=== PATIENT | female | born 1970 | race Caucasian/White ===

== ENCOUNTER 2024-11-15 07:59 | Day surgery (SDC) | payer OTHER, SELFPAY ==
--- NOTE | 2024-10-30 08:49 | PAT.ANESEVAL ---
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 When Was Last Pacemaker Check QUESTION #4 FULL TEXT: You/Your Family Experience fever (hyperthermia) with Anesthesia Last Oral Intake Last Oral intake: Last Oral Intake NPO since Meds taken in AM with sips of water? Meds patient instructed to take am of surgery PONV PONV - marketing performance analyst: PONV - marketing performance analyst Female Yes 10/30/24 08:26 HX of Motion Sickness No 10/30/24 08:26 HX of N/V After Surgery No 10/30/24 08:26 Non-Smoker Yes 10/30/24 08:26 Duration of Surgery greater No 10/30/24 08:26 than 60 minutes Number of Risk Factors 2 10/30/24 08:26 PONV Score Moderate Risk 10/30/24 08:26 Respiratory Assessment Respiratory Assessment - marketing performance analyst: Respiratory Tract Infection Hx - marketing performance analyst Hx Respiratory Tract Infection No 10/30/24 08:26 STOP Sleep Apnea STOP Sleep Apnea - marketing performance analyst: STOP Sleep Apnea - marketing performance analyst Hx Hypertension Yes 10/30/24 08:26 Hx Sleep Apnea No 10/30/24 08:26 CPAP BIPAP Do you snore loudly (louder Yes 10/30/24 08:26 than talking or can be heard Do you often feel tired/ No 10/30/24 08:26 fatigued/ sleepy during daytime? Has anyone observed you stop No 10/30/24 08:26 breathing during sleep? STOP Results Positive 10/30/24 08:26 QUESTION #5 FULL TEXT : Do you snore loudly (louder than talking or can be heard through closed doors)? 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 Specify any problems Hx of Preganancy in last 3 No 10/30/24 08:26 Months Nurse Filling Out Transfusion [email or web address] 10/30/24 08:26 & Questions: Date: 10/30/24 10/30/24 08:26 Time: 10/30/24 08:26 Patient unable to answer at this time (ie. confused, unrespo /Reproduction History /Reproductive History - marketing performance analyst: /Reproductive Hx- marketing performance analyst Hx Now No 10/30/24 08:26 Gestational Age (in weeks): EDC: Hx Hx Para Hx Section SAB No 10/30/24 08:26 PFSH Medical History (Updated 10/30/24 @ 08:35 by Shaggy Alexander) Carpal tunnel syndrome on both sides Wears glasses Prediabetes Arthritis Heartburn Non-smoker History of echocardiogram Hypertension Post-menopausal Home Medications ?Medication ?Instructions ?Recorded ?Last Taken ?Type atorvastatin 10 mg tablet 10 mg PO DAILY 10/30/24 Unknown History lisinopril 40 mg tablet 40 mg PO DAILY 10/30/24 Unknown History metoprolol succinate 25 mg 25 mg PO DAILY 10/30/24 Unknown History tablet,extended release 24 hr spironolactone 25 mg tablet 25 mg PO DAILY 10/30/24 Unknown History Allergy/AdvReac Type Severity Reaction Status Date / Time ciprofloxacin (From Cipro) AdvReac Rash Verified 10/30/24 08:24 hydrochlorothiazide (hctz) AdvReac pancreatiti Verified 10/30/24 08:24 s Surgical History (Updated 10/30/24 @ 08:35 by Shaggy Alexander) H/O: Tubal ligation status Social History Smoking Status: Never smoker Audit: Pertinent Findings Pertinent Findings Echo (EF%) pertinent findings: August 04, 2023. EF is 69%. No aortic stenosis. Recommendation Anesthesia Recommendation Anesthesia recommendation: OPTIMIZED for anesthesia
[2024-11-05 17:12] LABS: Hematocrit 42.9 % (37-47); Hemoglobin 14.3 g/dL (12.0-15.0); Immature Granulocytes Count 0.030 X10^3/uL (0.0-0.0); Mean Corp Hgb Conc 33.3 g/dL (32-36); Mean Corpuscular Volume 87.2 fL (81-99); Mean Platelet Vol. 9.5 fl (6.2-12.0); NRBC Flagged by Analyzer 0 % (0-5); Platelet Count 376 K/mm3 (150-450); RBC Distribution Width CV 12.4 % (11.6-14.6); RBC Distribution Width SD 39.8 fl (35.1-43.9); Red Blood Count 4.92 M/mm3 (4.2-5.4); White Blood Count 11.6 K/mm3 (4.4-11.0)
[2024-11-05 17:48] LABS: AST(SGOT) 22 U/L (<=31); Alanine Aminotransfer ALT/SGPT 23 U/L (<=34); Albumin, Serum 4.7 g/dL (3.5-5.0); Alkaline Phosphatase 88 U/L (35-104); Anion Gap 11 (5-15); BUN 10 mg/dL (4-19); BUN/Creat Ratio 9.9 RATIO (10-20); Calcium,Total 9.6 mg/dL (7.6-11.0); Carbon Dioxide 25.4 mmol/L (21.0-32.0); Chloride 101 mmol/L (98-108); Globulin 2.9 g/dL (2.2-4.2); Glucose 86 mg/dL (70-99); Potassium 4.7 mmol/L (3.3-5.1)
[2024-11-15] VITALS (9 sets, daily range): BP systolic 104–116; BP diastolic 58–72; PULSE 57–77; RESP 12–16; TEMP 36–36.4; O2SAT 93–100; BMI 37.7
[2024-11-15] MEDS: Lactated Ringers 1,000 ML 15 ML IV (08:36)
--- NOTE | 2024-11-15 09:07 | PRE.ANES_ITS ---
ASA Classification* ASA Classification ASA Classification: 2 Assessment & Plan Anesthesia* Anesthesia Assessment Anesthesia Assessment: Discussed sedation and/or anesthesia options, risks, benefits, and alternatives with patient/parents/legal guardian/POA. Questions invited. The patient/parents/legal guardian/POA seems to understand and agrees to proceed with anesthesia plan. Reviewed the physical assessment, medical history, allergy history and patient home medications list prior to surgery/procedure/anesthetic and documented any changes. Performed airway and anesthesia risk assessments. Anesthesia Type Anesthesia Type: MAC History Source History Obtained from:: Patient and Chart Anesthesia Focused Assessment* Temperature: 97.5 F Pulse Rate: 57 Blood Pressure: 114/58 Respiratory Rate: 12 Pulse Ox: 100 Oxygen Delivery Method: Room Air Airway Assessment Mouth opens: >3 cm Mallampati Score: II Teeth Condition: Intact Neck Range of motion (ROM): Full ROM Labs Anesthesia Preop lab: CBC WBC, (4.4-11.0) 11.6 K/mm3 H 11/05/24, 16: RBC, (4.2-5.4) 4.92 M/mm3 11/05/24, 16:33 Hgb, (12.0-15.0) 14.3 g/dL 11/05/24, 16:33 Hct, (37-47) 42.9 % 11/05/24, 16:33 Plt Count, (150-450) 376 K/mm3 11/05/24, 16:33 CHEMISTRY Potassium, (3.3-5.1) 4.7 mmol/L 11/05/24, 16:33 Sodium, (133-145) 138 mmol/L 11/05/24, 16:33 BUN, (4-19) 10 mg/dL 11/05/24, 16:33 Creatinine, (0.70-1.20) 1.00 mg/dL 11/05/24, : Glucose, (70-99) 86 mg/dL 11/05/24, 16:33 COAG Pre-Assessment Diagnosis/Proposed Procedure Planned Operative Procedure(s): HYSTEROSCOPY DILATION AND CURRETAGE Anesthesia History 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 When Was Last Pacemaker Check QUESTION #4 FULL TEXT: You/Your Family Experience fever (hyperthermia) with Anesthesia Last Oral Intake Last Oral intake: Last Oral Intake NPO since 00:00 11/15/24 08:26 Meds taken in AM with sips of water? Meds patient instructed to take am of surgery PONV PONV - battery technician: PONV - battery technician Female Yes 10/30/24 08:26 HX of Motion Sickness No 10/30/24 08:26 HX of N/V After Surgery No 10/30/24 08:26 Non-Smoker Yes 10/30/24 08:26 Duration of Surgery greater No 10/30/24 08:26 than 60 minutes Number of Risk Factors 2 10/30/24 08:26 PONV Score Moderate Risk 10/30/24 08:26 Height & Weight Height & Weight: Anesthesia: Height & Weight Height 5 ft 4 in 11/15/24 08:26 Weight: 99.6 kg 11/15/24 08:26 Body Mass Index (BMI) 37.7 11/15/24 08:26 Respiratory Assessment Respiratory Assessment - battery technician: Respiratory Tract Infection Hx - battery technician Hx Respiratory Tract Infection No 10/30/24 08:26 STOP Sleep Apnea STOP Sleep Apnea - battery technician: STOP Sleep Apnea - battery technician Hx Hypertension Yes 10/30/24 08:26 Hx Sleep Apnea No 10/30/24 08:26 CPAP BIPAP Do you snore loudly (louder Yes 10/30/24 08:26 than talking or can be heard Do you often feel tired/ No 10/30/24 08:26 fatigued/ sleepy during daytime? Has anyone observed you stop No 10/30/24 08:26 breathing during sleep? STOP Results Positive 10/30/24 08:26 QUESTION #5 FULL TEXT : Do you snore loudly (louder than talking or can be heard through closed doors)? 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 Specify any problems Hx of Preganancy in last 3 No 10/30/24 08:26 Months Nurse Filling Out Transfusion [email or web address] 10/30/24 08:26 & Questions: Date: 10/30/24 10/30/24 08:26 Time: 08:29 10/30/24 08:26 Patient unable to answer at this time (ie. confused, unrespo /Reproduction History /Reproductive History - battery technician: /Reproductive Hx- battery technician Hx Now No 10/30/24 08:26 Gestational Age (in weeks): EDC: Hx Hx Para Hx Section SAB No 10/30/24 08:26 Active Medications Active Medications: Current Medications Generic Name Dose Route Start Last Admin Trade Name Freq PRN Reason Stop Dose Admin Lactated Ringer's 1,000 mls @ 15 mls/hr 11/15/24 08:15 11/15/24 08:36 IV 15 mls/hr .Q48H ENEIDA Administration PFSH Medical History Carpal tunnel syndrome on both sides Wears glasses Prediabetes Arthritis Heartburn Non-smoker History of echocardiogram Hypertension Post-menopausal Home Medications ?Medication ?Instructions ?Recorded ?Last Taken ?Type atorvastatin 10 mg tablet 10 mg PO DAILY 10/30/2410/23 History lisinopril 40 mg tablet 40 mg PO DAILY 10/30/2410/23 History metoprolol succinate 25 mg 25 mg PO DAILY 10/30/24 History tablet,extended release 24 hr spironolactone 25 mg tablet 25 mg PO DAILY 10/30/24 History Allergy/AdvReac Type Severity Reaction Status Date / Time ciprofloxacin (From Cipro) AdvReac Rash Verified 11/15/24 08:24 hydrochlorothiazide (hctz) AdvReac pancreatiti Verified 11/15/24 08:24 s Surgical History H/O: Tubal ligation status Social History Smoking Status: Never smoker Review of Systems (Anesthesia) ROS Narrative System reviewed and no additional complaints, except as documented.
[2024-11-15] MEDS: Midazolam 2 MG/2 ML Syringe IV (09:14)
[2024-11-15] MEDS: fentaNYL 100 MCG/2 ML Ampul 50 MCG IV (09:17)
--- NOTE | 2024-11-15 09:30 | EMB_PTH ---
PATIENT: ERICKA CHAVARRIA [place] [facility] [id number] AGE/SX: 54/F ROOM: RE11/15/[address]: Dr. Anitha Long DO : 1970 BED: DIS: 11/15/2024 SPEC #: [id number] RECD: 11/15/24 10:42 STATUS: FRANCA REGinger #: [id number] OPAL: 11/15/24 09:[address]: Anitha Long DEPT: SURGICAL PATHOLOGY RECD BY: Colby Jain ENTERED: 11/15/24 14:36 SP TYPE: ENDOM BX/C OT DR: Dr. Kristina Brown MD Tissues: A - Endometrium, NOS Procedures: Surgery Specimen Level IV HEADER OPERATION: Hysteroscopy, D&C PRE-OP DIAGNOSIS: Postmenopausal bleeding, thickened endometrium TISSUE SUBMITTED: A- Endometrial curettings MICROSCOPIC DIAGNOSIS A. Endometrium, curettage: * Scant endocervical epithelium and lower uterine segment. * No definitive endometrium seen - see note. * Note: Limited tissue is present for evaluation. Clinical correlation is necessary to assess the adequacy of this sampling. MICROSCOPIC DESCRIPTION Slides are reviewed. GROSS DESCRIPTION A. Received in formalin labeled with the patient's name and date of . Designated as endometrial curettings is a 2.5 x 1.3 x 0.1 cm aggregate of mucoid material and a pink-howell red flecks of tissue. Entirely submitted in 1 cassette. LA 11/15/2024 CPT:84680
[2024-11-15] MEDS: Lidocaine 1% /Epi 1:100 (20ml) 20 ML Vial (09:36)
--- NOTE | 2024-11-15 09:47 | PCM.OPRPT ---
Operative Report (Standard) Operative Information Date of Procedure: 11/15/24 Pre-Operative Diagnosis: Thickened endometrium Post-Operative Diagnosis: Thickened endometrium Surgery/Procedure Performed: Hysteroscopy, D&C carbon brusher assembler: No Type of Anesthesia: MAC RN Documented Start/Stop Times: Operation Date: 11/15/24 09:30 Case Time Into Pre-Op 11/15/24 08:05 Anesthesia Start 11/15/24 09:13 Into Room 11/15/24 09:13 Procedure Start 11/15/24 09:34 Procedure End 11/15/24 09:46 Procedure Start Time: :34 Procedure Stop Time: :46 Select all DRAINS/GRAFTS/IMPLANTS that apply: None Special Medications: None Estimated Blood Loss: < 50 mL Fluids Replaced: See anesthesia record Specimen collected: Yes Description of specimen(s) removed: Endometrial curettings Description of surgery: The patient was taken to the operating room where MAC anesthesia was induced and found to be adequate. She was prepped and draped in the dorsal lithotomy position using yellowfin stirrups. A weighted speculum was placed in the vagina to expose the cervix. The anterior lip of the cervix was grasped with single-tooth tenaculum. The cervix was stenotic at the internal cervical os. The cervix was serially dilated. The uterus sounded to 7.5 cm in length. The hysteroscope was inserted into the uterine cavity, and uterine cavity was distended with normal saline as distention media. Bilateral tubal ostia were unable to be visualized. The endometrium was thin appearing. Limited visibility of the entire uterine cavity. The hysteroscope was then removed. The uterus again sounded to 7.5 cm in length. A sharp curettage was performed for scant tissue. The endometrial curettings were sent to pathology for review. Bleeding was scant. All instruments were removed from the vagina. A vaginal sweep was performed. Instrument and sponge counts were correct. The patient was taken to the recovery in stable condition. Surgical Findings: Stenotic cervix Uterus sounded to 7.5 cm in length Endometrium thin appearing however limited visibility and bilateral tubal ostia not visualized likely due to past ablation Complications Complications: No Admit VTE Documentation VTE Present on Admission: No VTE Mechan Device Prophylaxis: SCD's
--- NOTE | 2024-11-15 09:55 | PCM.DC ---
Discharge Instructions DC O2, CPAP, BIPAP needs Home O2 Discharge instructions: No Dressing / Incision Discharge Activity: May Drive (once you are more than 24 hours out from surgery) and May Shower (once you are more than 24 hours out from surgery) May resume sexual activity in: 1 week (nothing in the vagina for 1 week) Weight Bearing Status: Weight bearing as tolerated Lifting Restrictions: none Dressing / Incision Call your doctor if you observe: Fever of 101 or Higher, Inability to urinate, Inability to have a bowel movement, Using more than 1 pad per hour, Shortness of breath, Dizziness, Fainting spells, Swelling in the ankles, Chest pain, Increased palpitations (irregular heartbeat), Calf discomfort and Uncontrolled pain Cleanse incision/area with: Soap & Water Follow Up Care Please Follow Up With: Anitha Long DO When: 1 week for follow up Test Results: Test results from this visit will be discussed in further detail at your follow-up appointment, if applicable. Discharge Plan Admission Primary Reason for Your Visit: Surgery Attending Provider: Anitha Long Primary Care Provider: Kristina Brown Instructions Patient Instructions: Dilation and Curettage Print Language: Palestinian Discharge Orders/Prescriptions Prescriptions: Continued atorvastatin 10 mg tablet 10 mg PO DAILY metoprolol succinate 25 mg tablet extended release 24 hr 25 mg PO DAILY lisinopril 40 mg tablet 40 mg PO DAILY spironolactone 25 mg tablet 25 mg PO DAILY Disposition Disposition (needs filled in before D/C Order can be placed): Home, Self Care
--- NOTE | 2024-11-15 10:02 | PCM.POST.ANE ---
Anesthesia: Postop Eval I Current Vital Signs Temperature: 97 F Pulse Rate: 76 Blood Pressure: 116/72 Respiratory Rate: 16 Pulse Ox: 94 Oxygen Delivery Method: Room Air Assessment Airway patent: Yes Spontaneous unlabored respirations: Yes Mental status: Awake and Calm nausea: No Vomiting: No Anesthesia Complication: No Fluid Hydration Crystalloid volume administer (ml): 600 Total IV fluid infused: 600 Progress Note Anesthesia document: Postop Eval 1 completed: Yes
--- NOTE | 2024-11-15 10:53 | POSTOPAN2_ITS ---
Anesthesia Postop Eval I Sum Postop Eval Completion status Anesthesia document: Postop Eval 1 completed: Yes Anesthesia Postop Eval I Summary Anesthesia Postop Eval I Summary: Anesthesia Postop Eval I: Assessment Summary Airway patent Yes 11/15/24 10:04 PITCH WORKER.[email or web address] Spontaneous unlabored Yes 11/15/24 10:04 PITCH WORKER.GDOTT respirations Mental status Awake,Calm 11/15/24 10:04 PITCH WORKER.GDOTT nausea No 11/15/24 10:04 PITCH WORKER.GDOTT Vomiting No 11/15/24 10:04 PITCH WORKER.GDOTT Anesthesia Postop Eval I: Fluid Summary Crystalloid volume administer 600 11/15/24 10:04 PITCH WORKER.GDOTT (ml) Colloids volume administered ( ml) Blood Product volume administered (ml) Total IV fluid infused 600 11/15/24 10:04 PITCH WORKER.GDOTT Anesthesia Postop Eval I: Summary Notes Anesthesia Complication No 11/15/24 10:04 PITCH WORKER.GDOTT Anesthesia Complication Comment: Post-operative progress note Anesthesia: Postop Eval II Evaluation Mental status: Awake and Calm Pain Level: 1 nausea: No Vomiting: No Complications Anesthesia Complication: No
--- NOTE | 2024-11-15 10:53 | PCM.POSTANE2 ---
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.GDOTT Spontaneous unlabored Yes 11/15/24 10:04 SURFACE ROOM SHOP OPTICIAN.GDOTT respirations Mental status Awake,Calm 11/15/24 10:04 SURFACE ROOM SHOP OPTICIAN.GDOTT nausea No 11/15/24 10:04 SURFACE ROOM SHOP OPTICIAN.GDOTT Vomiting No 11/15/24 10:04 SURFACE ROOM SHOP OPTICIAN.GDOTT Anesthesia Postop Eval I: Fluid Summary Crystalloid volume administer 600 11/15/24 10:04 SURFACE ROOM SHOP OPTICIAN.GDOTT (ml) Colloids volume administered ( ml) Blood Product volume administered (ml) Total IV fluid infused 600 11/15/24 10:04 SURFACE ROOM SHOP OPTICIAN.GDOTT Anesthesia Postop Eval I: Summary Notes Anesthesia Complication No 11/15/24 10:04 SURFACE ROOM SHOP OPTICIAN.GDOTT Anesthesia Complication Comment: Post-operative progress note Anesthesia: Postop Eval II Evaluation Mental status: Awake and Calm Pain Level: 1 nausea: No Vomiting: No Complications Anesthesia Complication: No
== END 2024-11-15 10:54 | disposition home or self-care (01) ==
LOC: SDC 08:00 → AC 08:06
PROVIDERS: PCP Family Medicine Sports Medicine; Referring Provider Obstetrics & Gynecology; Visit Provider Obstetrics & Gynecology
PROC: 0UB98ZZ Excision of Uterus, Via Natural or Artificial Opening Endoscopic (ICD-10-PCS; CPT 58558; principal; 2024-11-15 09:15)
DX: N88.2 Stricture and stenosis of cervix uteri (principal); I10 Essential (primary) hypertension; N95.0 Postmenopausal bleeding; R93.89 Abnormal findings on diagnostic imaging of other specified body structures; Z79.899 Other long term (current) drug therapy
CPT/HCPCS: 58558; 00952; 36415; 80053; 85025; 86850; 86900; 86901; 88305; J2405